=== PATIENT | female | born 1940 | race Caucasian/White ===

== ENCOUNTER 2017-07-13 16:37 | Inpatient (IN) | payer MEDICARE, OTHER ==
[~2017-07-13] VITALS: Ht 170.2 cm; Wt 64.9 kg
[2017-07-13] MEDS ORDERED: ETOMIDATE (2MG/ML) 20ML VIAL IV ONE (19:00)
[2017-07-13] MEDS ORDERED: hydrALAZINE HCL 20 MG/ML VL IV ONE (20:30)
[2017-07-13 21:16] LABS: Basophils # (auto) 0.1 uL; Basophils % (auto) 1.3 % (0.0-2.0); Eosinophils # (auto) 0.4 uL; Eosinophils % (auto) 4.6 % (0.0-7.0); Hematocrit 38.7 % (36.0-46.0); Hemoglobin 12.9 g/dL (12.2-16.2); Lymphocytes # (auto) 2.9 uL; Lymphocytes % (auto) 30.8 % (10.0-50.0); Mean Corpuscular Hgb Conc. 33.2 g/dL (32.0-36.0); Mean Corpuscular Volume 99.4 fL (80.0-100.0); Monocytes # (auto) 1.1 uL; Neutrophils % (auto) 52.3 % (37.0-80.0); Platelet Count (auto) 296 10^3/uL (140-450); Red Cell Distribution Width 14.2 % (11.8-14.3); White Blood Cell 9.6 10^3/uL (4.4-10.8)
[2017-07-13 21:23] LABS: BUN/Creatinine Ratio 23.4; Calcium 8.7 mg/dL (8.5-10.1); Magnesium 1.7 mg/dL (1.6-2.6); Potassium 3.3 mmol/L (3.5-5.1)
[2017-07-13 21:33] LABS: Bilirubin, Total 0.6 mg/dL (0.2-1.0); Total Protein 6.9 g/dL (6.4-8.2)
[2017-07-13] MEDS ORDERED: POTASSIUM CHL 20 Meq TABLET PO ONE (21:45)
[2017-07-13] MEDS ORDERED: ACETAMINOPHEN 325 MG TAB PO PRN (23:00)
[2017-07-13] MEDS ORDERED: MORPHINE SULFATE 8mg/ml INJ SDV IV PRN (23:00)
[2017-07-13] MEDS ORDERED: LISINOPRIL 5 MG TAB PO ONE (23:00)
[2017-07-13] MEDS ORDERED: TEMAZEPAM 15 MG CAP PO PRN (23:00)
[2017-07-13] MEDS ORDERED: HYDROcodone-ACET 5/325MG TAB PO PRN (23:00)
[2017-07-13] MEDS ORDERED: cloNIDine HCL 0.1 MG TAB PO PRN (23:00)
[2017-07-13] MEDS ORDERED: DOCUSATE SOD 100 MG CAP PO PRN (23:00)
[2017-07-13] MEDS ORDERED: ONDANSETRON HCL 4 MG/2 ML VIAL IV PRN (23:00)
[2017-07-14] VITALS: BP 157/75
[2017-07-14] MEDS ORDERED: OME20GT PO (01:03)
[2017-07-14] MEDS ORDERED: LEVO50TA7 PO (01:03)
[2017-07-14 01:17] VITALS: BP 157/75
[2017-07-14 05:10] VITALS: BP 110/66
[2017-07-14 06:05] LABS: Basophils # (auto) 0.1 uL; Eosinophils # (auto) 0.5 uL; Monocytes # (auto) 0.9 uL; Red Cell Distribution Width 14.1 % (11.8-14.3)
[2017-07-14 06:07] LABS: Potassium 3.5 mmol/L (3.5-5.1)
[2017-07-14 06:08] LABS: Basophils % (auto) 1.2 % (0.0-2.0); Eosinophils % (auto) 5.4 % (0.0-7.0); Hematocrit 38.5 % (36.0-46.0); Hemoglobin 12.8 g/dL (12.2-16.2); Lymphocytes % (auto) 31.2 % (10.0-50.0); Mean Corpuscular Hemoglobin 33.3 pg (28.0-32.0); Mean Corpuscular Hgb Conc. 33.2 g/dL (32.0-36.0); Mean Corpuscular Volume 100.3 fL (80.0-100.0); Monocytes % (auto) 9.6 % (0.0-12.0); Neutrophils # (auto) 5.1 uL; Neutrophils % (auto) 52.6 % (37.0-80.0); Platelet Count (auto) 304 10^3/uL (140-450); Red Blood Cells 3.84 10^6/uL (4.0-5.20); White Blood Cell 9.7 10^3/uL (4.4-10.8)
[2017-07-14 06:11] LABS: Albumin 2.8 g/dL (3.4-5.0); BUN/Creatinine Ratio 25.6; Calcium 8.8 mg/dL (8.5-10.1)
[2017-07-14 06:14] LABS: Bilirubin, Total 0.7 mg/dL (0.2-1.0); Total Protein 6.5 g/dL (6.4-8.2)
[2017-07-14] MEDS ORDERED: LEVOTHYROXINE SODIUM 25 MCG TAB PO SCH (07:00)
[2017-07-14 08:46] VITALS: BP 123/71
[2017-07-14] MEDS ORDERED: ENOXAPARIN SOD 40 MG/0.4 ML SYRINGE SC SCH (10:00)
[2017-07-14] MEDS ORDERED: FAMOTIDINE 20 MG TAB PO SCH (10:00)
[2017-07-14] MEDS ORDERED: LISINOPRIL 5 MG TAB PO SCH ×2 (10:00)
[2017-07-14 12:00] VITALS: BP 127/79
[2017-07-14] MEDS ORDERED: ATORVASTATIN 20 MG TAB PO SCH (22:00)
== END 2017-07-14 15:20 | disposition home or self-care (01) | DRG 563 ==
LOC: ER 16:37 → OVERFLOW 16:38 → WEST WING 23:45
PROVIDERS: ADMIT Nurse Practitioner; ATTEND Family Medicine
PROC: 0RSKXZZ Reposition Left Shoulder Joint, External Approach (ICD-10-PCS; principal; 2017-07-13)
DX: S43.035A Inferior dislocation of left humerus, initial encounter (principal); K21.9 Gastro-esophageal reflux disease without esophagitis; E78.00 Pure hypercholesterolemia, unspecified; E78.5 Hyperlipidemia, unspecified; E03.9 Hypothyroidism, unspecified; G47.00 Insomnia, unspecified; W01.0XXA Fall on same level from slipping, tripping and stumbling without subsequent striking against object, initial encounter; K59.00 Constipation, unspecified; E87.6 Hypokalemia; I10 Essential (primary) hypertension; Z82.49 Family history of ischemic heart disease and other diseases of the circulatory system; Y93.89 Activity, other specified; Z90.710 Acquired absence of both cervix and uterus; Y92.092 Bedroom in other non-institutional residence as the place of occurrence of the external cause; Y99.8 Other external cause status
CPT/HCPCS: 36415; 71045; 73020; 80053; 83735; 84443; 85025; 94761; 96374; 96375